=== PATIENT | female | born 2000 ===

== ENCOUNTER 2022-05-01 08:30 | Emergency (ER) | payer MEDICAID ==
[~2022-05-01] VITALS: Ht 165.1 cm; Wt 69.0 kg
[2022-05-01] MEDS ORDERED: AMITRIPTYLINE H25 MG PO (08:46)
[2022-05-01] MEDS ORDERED: DICYCLOMINE HCL10 MG PO (08:46)
[2022-05-01] MEDS ORDERED: CEPHALEXIN500 M1 PO (11:00)
== END 2022-05-01 11:04 | disposition home or self-care (01) ==
LOC: ED 08:30
DX: N39.0 Urinary tract infection, site not specified (principal); E21.3 Hyperparathyroidism, unspecified; Z88.8 Allergy status to other drugs, medicaments and biological substances; Z88.5 Allergy status to narcotic agent; Z79.899 Other long term (current) drug therapy
CPT/HCPCS: 36415; 80053; 81001; 83690; 84703; 85025; 87088; 96374; 96375; 99284-25; J0696; J1200; J1885; J2550; J7030